=== PATIENT | female | born 1990 | race Caucasian/White ===

== ENCOUNTER 2017-12-02 12:17 | Emergency (ER) | payer MEDICAID ==
[~2017-12-02] VITALS: Ht 177.8 cm; Wt 52.3 kg
[~2017-12-02 12:17] MED LIST: DIPH25CA83 PO; NEOM10DR45 EACH EAR; PRED10TA PO; QUET300T3 PO
[2017-12-02] MEDS ORDERED: DOXY100C43 PO (14:09)
[2017-12-02] MEDS ORDERED: PERM60CR19 TP (14:09)
[2017-12-02 14:17] VITALS: BP 121/77
== END 2017-12-02 14:23 | disposition home or self-care (01) ==
LOC: ER 12:17
DX: B86 Scabies (principal); J32.9 Chronic sinusitis, unspecified; F15.10 Other stimulant abuse, uncomplicated; F11.10 Opioid abuse, uncomplicated; Z86.718 Personal history of other venous thrombosis and embolism; Z79.899 Other long term (current) drug therapy
CPT/HCPCS: 99283

== ENCOUNTER 2018-05-12 10:20 | Emergency (ER) | payer MEDICAID ==
[~2018-05-12] VITALS: Ht 180.3 cm; Wt 68.0 kg
[2018-05-12 10:44] VITALS: BP 120/75
[2018-05-12] MEDS ORDERED: CefTRIAXone 2gm/D5W 50ml 50 ML IV ONE (11:30)
[2018-05-12] MEDS ORDERED: normal saline 1000ML IV soln IV ONE (11:30)
[2018-05-12] MEDS ORDERED: vancomycin/NS 1 GM ADD-VANTAGE 250 ML IV ONE (11:30)
[2018-05-12] MEDS ORDERED: CefTRIAXone 1000mg IM Kit (w/lidocaine diluent) IM ONE (11:45)
[2018-05-12] MEDS ORDERED: SULF1TAB49 PO (11:47)
[2018-05-12] MEDS ORDERED: CEPH500C5 PO (11:47)
[2018-05-12 12:10] LABS: BASOPHILS # (AUTO) 0.1 X10'3 (0-0.2); BASOPHILS % (AUTO) 0.9 % (0-1); EOSINOPHILS # (AUTO) 0.2 X10'3 (0-0.9); EOSINOPHILS % (AUTO) 1.6 % (0-6); HEMATOCRIT 40.3 % (35.0-45.0); HEMOGLOBIN 13.8 g/dl (12.0-16.0); LYMPHOCYTES # (AUTO) 1.8 X10'3 (1.1-4.8); LYMPHOCYTES % (AUTO) 19.1 % (21-51); MEAN CORPUSCULAR HGB CONC 34.2 % (33.0-36.5); MEAN CORPUSCULAR VOLUME 93.8 FL (78-98); MEAN PLATELET VOLUME 7.5 FL (7.4-10.4); MONOCYTES # (AUTO) 0.8 X10'3 (0-0.9); MONOCYTES % (AUTO) 8.2 % (2-12); NEUTROPHILS # (AUTO) 6.7 X10'3 (1.8-7.7); NEUTROPHILS % (AUTO) 70.2 % (42-75); PLATELET COUNT 285 X10'3 (140-440); RED CELL DISTRIBUTION WIDTH 13.3 % (11.5-14.5); WHITE BLOOD COUNT 9.6 X10'3 (4.5-11.0)
[2018-05-12 12:22] LABS: INR 0.9 INR; PARTIAL THROMBOPLASTIN TIME 27 SECONDS (22-32); PROTHROMBIN TIME 9.3 SECONDS (9.0-12.0)
[2018-05-12 12:33] LABS: ALANINE AMINOTRANSFERASE 52 U/L (12-78); ALBUMIN 4.4 G/DL (3.4-5.0); ALBUMIN/GLOBULIN RATIO 1.1 (1.1-1.5); ALKALINE PHOSPHATASE 88 IU/L (46-116); ANION GAP 6 (8-16); ASPARTATE AMINO TRANSFERASE 33 U/L (10-37); BILIRUBIN,TOTAL 0.4 MG/DL (0.1-1.0); BLOOD UREA NITROGEN 12 MG/DL (7-18); BUN/CREATININE RATIO 14.3 (6.6-38.0); CALCIUM 9.5 MG/DL (8.5-10.1); CHLORIDE 101 MMOL/L (99-107); CREATININE 0.84 MG/DL (0.40-0.90); GLUCOSE 116 MG/DL (70-104); MAGNESIUM 2.3 MG/DL (1.5-2.4); POTASSIUM 4.1 MMOL/L (3.5-5.1); SODIUM 137 MMOL/L (135-145); TOTAL CARBON DIOXIDE 29.6 MMOL/L (24-32); TOTAL PROTEIN 8.5 G/DL (6.4-8.2); eGFR 81 ML/MIN
== END 2018-05-12 12:10 | disposition left against medical advice (07) ==
LOC: ER 10:20
DX: M65.9 Synovitis and tenosynovitis, unspecified (principal); F31.9 Bipolar disorder, unspecified; F15.90 Other stimulant use, unspecified, uncomplicated; F11.90 Opioid use, unspecified, uncomplicated; Z79.2 Long term (current) use of antibiotics; Z86.718 Personal history of other venous thrombosis and embolism
CPT/HCPCS: 36415; 80053; 83605; 83735; 84145; 85025; 85610; 85730; 87040; 96372; 99284; J0696

== ENCOUNTER 2018-06-06 07:45 | Emergency (ER) | payer MEDICAID ==
[~2018-06-06] VITALS: Ht 180.3 cm; Wt 65.0 kg
[~2018-06-06 07:45] MED LIST changes: +CEPH250T PO; +CEPH500C5 PO; +IBUP-1986 PO
[2018-06-06] MEDS ORDERED: ondansetron/PF 4mg/2ml inj IV ONE (07:50)
[2018-06-06] MEDS ORDERED: normal saline 1000ML IV soln IVB ONE (07:50)
[2018-06-06 08:28] LABS: BASOPHILS % (AUTO) 0.4 % (0-1); EOSINOPHILS # (AUTO) 0.1 X10'3 (0-0.9); HEMATOCRIT 38.5 % (35.0-45.0); HEMOGLOBIN 13.1 g/dl (12.0-16.0); LYMPHOCYTES # (AUTO) 1.6 X10'3 (1.1-4.8); LYMPHOCYTES % (AUTO) 30.2 % (21-51); MEAN CORPUSCULAR HEMOGLOBIN 31.7 PG (27.0-31.0); MEAN CORPUSCULAR HGB CONC 34.2 % (33.0-36.5); MEAN CORPUSCULAR VOLUME 92.9 FL (78-98); MEAN PLATELET VOLUME 7.6 FL (7.4-10.4); MONOCYTES # (AUTO) 0.4 X10'3 (0-0.9); NEUTROPHILS # (AUTO) 3.2 X10'3 (1.8-7.7); NEUTROPHILS % (AUTO) 60.4 % (42-75); PLATELET COUNT 264 X10'3 (140-440); RED BLOOD COUNT 4.14 X10'6 (4.20-5.60); WHITE BLOOD COUNT 5.3 X10'3 (4.5-11.0)
[2018-06-06 08:41] LABS: ALANINE AMINOTRANSFERASE 74 U/L (12-78); ALBUMIN 4.1 G/DL (3.4-5.0); ALKALINE PHOSPHATASE 89 IU/L (46-116); ANION GAP 12 (8-16); ASPARTATE AMINO TRANSFERASE 74 U/L (10-37); BILIRUBIN,TOTAL 0.3 MG/DL (0.1-1.0); BLOOD UREA NITROGEN 14 MG/DL (7-18); CALCIUM 8.7 MG/DL (8.5-10.1); CHLORIDE 102 MMOL/L (99-107); CREATININE 1.08 MG/DL (0.40-0.90); ETHANOL < 0.010 GM/DL (0.0-0.010); GLUCOSE 143 MG/DL (70-104); POTASSIUM 3.8 MMOL/L (3.5-5.1); SODIUM 138 MMOL/L (135-145); TOTAL CARBON DIOXIDE 24.1 MMOL/L (24-32); TOTAL PROTEIN 8.2 G/DL (6.4-8.2); eGFR 61 ML/MIN
[2018-06-06 08:48] LABS: CLARITY,URINE SLIGHTLY CLOUDY (Clear); COLOR,URINE YELLOW (Yellow); GLUCOSE, URINE 100 mg/dl (Neg); KETONES,URINE NEGATIVE (Neg); LEUKOCYTE ESTERASE ,URINE NEGATIVE (Neg); NITRITES, URINE NEGATIVE (Neg); OCCULT BLOOD,URINE NEGATIVE (Neg); PROTEIN,URINE NEGATIVE (Neg); UROBILINOGEN,URINE 0.2 E.U/dL (0.2-1.0)
[2018-06-06 08:49] LABS: UA COLLECTION TYPE STRAIGHT CATH
[2018-06-06 08:55] LABS: URINE AMPHETAMINE SCREEN POSITIVE (Neg); URINE BARBITUATE SCREEN NEGATIVE (Neg); URINE BENZODIAZEPINES SCREEN POSITIVE (Neg); URINE CANNABINOID SCREEN NEGATIVE (Neg); URINE COCAINE SCREEN NEGATIVE (Neg); URINE METHADONE SCREEN NEGATIVE (Neg); URINE OPIATE SCREEN POSITIVE (Neg); URINE PHENCYCLIDINE SCREEN NEGATIVE (Neg)
[2018-06-06 08:58] LABS: BACTERIA,URINE NONE SEEN /HPF (Neg); SQUAMOUS EPITHELIAL CELL,UR FEW /LPF (FEW); WBC,URINE 0-4 /HPF (0-4)
[2018-06-06 08:59] LABS: RBC,URINE 0-2 /HPF (0-2); TRANSITIONAL EPI CELLS,URINE FEW /HPF
[2018-06-06 09:00] LABS: URINE HCG NEGATIVE (NEG)
[2018-06-06] MEDS ORDERED: normal saline 1000ml 1,000 ML IV ONE (09:25)
[2018-06-06] MEDS ORDERED: diphenhydrAMINE 50 mg/ml inj IV ONE (09:30)
[2018-06-06] MEDS ORDERED: ketorolac trometh. 30mg/ml inj. IV ONE (09:55)
[2018-06-06] MEDS ORDERED: acetaminophen 325mg tablet PO ONE (09:55)
[2018-06-06] MEDS ORDERED: LORazepam 2 mg/ml vial IV ONE ×2 (10:35→11:30)
[2018-06-06] MEDS ORDERED: emollient combination-Eucerin 250 ML LOTION TP ONE (10:45)
[2018-06-06] MEDS ORDERED: dexamethasone 4mg/ml inj IV ONE (10:45)
[2018-06-06 12:09] VITALS: BP 102/72
[2018-06-06] MEDS ORDERED: HYDR28CR67 TP (12:50)
== END 2018-06-06 12:55 | disposition home or self-care (01) ==
LOC: ER 07:45
DX: F15.10 Other stimulant abuse, uncomplicated (principal); F19.10 Other psychoactive substance abuse, uncomplicated; R45.1 Restlessness and agitation; R00.0 Tachycardia, unspecified; F41.9 Anxiety disorder, unspecified; F32.9 Major depressive disorder, single episode, unspecified; F11.90 Opioid use, unspecified, uncomplicated; Z86.718 Personal history of other venous thrombosis and embolism; Z88.8 Allergy status to other drugs, medicaments and biological substances; Z79.899 Other long term (current) drug therapy
CPT/HCPCS: 36415; 71045; 80053; 80305; 80320; 81001; 81025; 85025; 93005; 96374; 96375; 96376; 99285; J1100; J1200; J1885; J2060; J2405; J7030

== ENCOUNTER 2018-06-24 12:27 | Emergency (ER) | payer MEDICAID ==
[~2018-06-24] VITALS: Ht 180.3 cm; Wt 69.0 kg
[~2018-06-24 12:27] MED LIST changes: -CEPH250T PO; +HYDR28CR67 TP
[2018-06-24] MEDS ORDERED: morphine 4 MG/ML inj SYRINge IV ONE (13:55)
[2018-06-24] MEDS ORDERED: ondansetron/PF 4mg/2ml inj IV ONE (13:55)
[2018-06-24] MEDS ORDERED: LORazepam 2 mg/ml vial IV ONE ×2 (14:00→17:10)
[2018-06-24 14:31] LABS: BASOPHILS % (AUTO) 0 % (0-1); EOSINOPHILS # (AUTO) 0.1 X10'3 (0-0.9); EOSINOPHILS % (AUTO) 1.2 % (0-6); HEMATOCRIT 37.4 % (35.0-45.0); HEMOGLOBIN 12.8 g/dl (12.0-16.0); LYMPHOCYTES % (AUTO) 7.8 % (21-51); MEAN CORPUSCULAR HEMOGLOBIN 31.3 PG (27.0-31.0); MEAN CORPUSCULAR HGB CONC 34.1 % (33.0-36.5); MEAN CORPUSCULAR VOLUME 91.7 FL (78-98); MEAN PLATELET VOLUME 7.2 FL (7.4-10.4); MONOCYTES % (AUTO) 8.5 % (2-12); NEUTROPHILS # (AUTO) 10.1 X10'3 (1.8-7.7); NEUTROPHILS % (AUTO) 82.5 % (42-75); PLATELET COUNT 302 X10'3 (140-440); RED BLOOD COUNT 4.08 X10'6 (4.20-5.60); WHITE BLOOD COUNT 12.3 X10'3 (4.5-11.0)
[2018-06-24] MEDS ORDERED: normal saline 1000ML IV soln IVB ONE (14:45)
[2018-06-24 14:47] LABS: TOTAL CELLS COUNTED 100
[2018-06-24 14:48] LABS: PLATELET ESTIMATE NORMAL
[2018-06-24] MEDS ORDERED: diphenhydrAMINE 50 mg/ml inj IV ONE (15:00)
[2018-06-24] MEDS ORDERED: haloperidol decanoate***LONG-ACTING*** 100mg/ml **IM only** inj. IM ONE (15:00)
[2018-06-24 15:08] LABS: ALANINE AMINOTRANSFERASE 61 U/L (12-78); ALBUMIN 4.1 G/DL (3.4-5.0); ALBUMIN/GLOBULIN RATIO 1.2 (1.1-1.5); ALKALINE PHOSPHATASE 82 IU/L (46-116); ANION GAP 12 (8-16); ASPARTATE AMINO TRANSFERASE 34 U/L (10-37); BILIRUBIN,TOTAL 0.7 MG/DL (0.1-1.0); BLOOD UREA NITROGEN 13 MG/DL (7-18); BUN/CREATININE RATIO 16.9 (6.6-38.0); CALCIUM 8.7 MG/DL (8.5-10.1); CHLORIDE 99 MMOL/L (99-107); CREATININE 0.77 MG/DL (0.40-0.90); GLUCOSE 132 MG/DL (70-104); POTASSIUM 3.9 MMOL/L (3.5-5.1); SODIUM 132 MMOL/L (135-145); TOTAL CARBON DIOXIDE 21.1 MMOL/L (24-32); TOTAL PROTEIN 7.6 G/DL (6.4-8.2); eGFR 90 ML/MIN
[2018-06-24] MEDS ORDERED: iohexol 350MG/ML 100ml bottle IV ONE (16:43)
[2018-06-24 17:00] LABS: HCG SERUM QL NEGATIVE
[2018-06-24 17:19] LABS: PARTIAL THROMBOPLASTIN TIME 30 SECONDS (22-32)
[2018-06-24] MEDS ORDERED: haloperidol lactate 5mg/ml inj IM ONE (18:00)
[2018-06-24 18:36] LABS: CLARITY,URINE CLOUDY (Clear); COLOR,URINE YELLOW (Yellow); GLUCOSE, URINE NEGATIVE (Neg); KETONES,URINE 15 mg/dl (Neg); LEUKOCYTE ESTERASE ,URINE SMALL (Neg); NITRITES, URINE POSITIVE (Neg); OCCULT BLOOD,URINE TRACE-INTACT (Neg); PROTEIN,URINE NEGATIVE (Neg); UROBILINOGEN,URINE 0.2 E.U/dL (0.2-1.0)
[2018-06-24 18:37] LABS: URINE AMPHETAMINE SCREEN POSITIVE (Neg); URINE BARBITUATE SCREEN NEGATIVE (Neg); URINE BENZODIAZEPINES SCREEN POSITIVE (Neg); URINE CANNABINOID SCREEN POSITIVE (Neg); URINE COCAINE SCREEN NEGATIVE (Neg); URINE METHADONE SCREEN NEGATIVE (Neg); URINE OPIATE SCREEN POSITIVE (Neg); URINE PHENCYCLIDINE SCREEN NEGATIVE (Neg)
[2018-06-24 18:39] LABS: UA COLLECTION TYPE STRAIGHT CATH
[2018-06-24 18:53] LABS: BACTERIA,URINE 4+ /HPF (Neg); SQUAMOUS EPITHELIAL CELL,UR FEW /LPF (FEW)
[2018-06-24 20:04] VITALS: BP 114/71
== END 2018-06-24 20:07 | disposition home or self-care (01) ==
LOC: ER 12:27
DX: R07.89 Other chest pain (principal); R06.02 Shortness of breath; F15.10 Other stimulant abuse, uncomplicated; F11.10 Opioid abuse, uncomplicated; Z86.718 Personal history of other venous thrombosis and embolism; Z88.8 Allergy status to other drugs, medicaments and biological substances; Z79.899 Other long term (current) drug therapy
CPT/HCPCS: 36415; 71045; 71275; 80053; 80305; 81001; 84484; 84703; 85025; 85610; 85730; 87077; 87088; 87186; 96372; 96374; 96375; 96376; 99285; J1200; J1630; J2060; J2270; J2405; J7030; Q9967

== ENCOUNTER 2018-12-18 16:03 | Emergency (ER) | payer MEDICAID ==
[~2018-12-18] VITALS: Ht 180.3 cm; Wt 65.0 kg
[2018-12-18 16:48] LABS: CLARITY,URINE SLIGHTLY CLOUDY (Clear); COLOR,URINE YELLOW (Yellow); GLUCOSE, URINE NEGATIVE (Neg); KETONES,URINE TRACE mg/dl (Neg); LEUKOCYTE ESTERASE ,URINE NEGATIVE (Neg); NITRITES, URINE NEGATIVE (Neg); OCCULT BLOOD,URINE TRACE-INTACT (Neg); PROTEIN,URINE TRACE mg/dl (Neg)
[2018-12-18 16:50] LABS: URINE HCG NEGATIVE (NEG)
[2018-12-18 16:52] LABS: UA COLLECTION TYPE CLN CATCH MIDSTREAM
[2018-12-18 17:04] LABS: BACTERIA,URINE 3+ /HPF (Neg); MUCUS STRANDS MODERATE /LPF (Neg); RBC,URINE 0-2 /HPF (0-2); SQUAMOUS EPITHELIAL CELL,UR MODERATE /LPF (FEW); WBC,URINE 20-30 /HPF (0-4)
[2018-12-18] MEDS ORDERED: CefTRIAXone 250MG IM Kit w/LIDOcaine IM ONE (18:05)
[2018-12-18] MEDS ORDERED: azithromycin 250mg tablet PO ONE (18:05)
--- NOTE | 2018-12-18 18:08 | NUR ---
assisted Mireille BARTH with pelvic examine, pt seth well, sample sent to lab
[2018-12-18] MEDS ORDERED: CEPH-572 PO (18:11)
[2018-12-18 18:43] VITALS: BP 128/77
== END 2018-12-18 18:46 | disposition home or self-care (01) ==
LOC: ER 16:04
DX: N39.0 Urinary tract infection, site not specified (principal); F15.90 Other stimulant use, unspecified, uncomplicated; F11.90 Opioid use, unspecified, uncomplicated; Z88.8 Allergy status to other drugs, medicaments and biological substances; Z86.718 Personal history of other venous thrombosis and embolism; Z79.2 Long term (current) use of antibiotics; Z79.899 Other long term (current) drug therapy
CPT/HCPCS: 36415; 81001; 81025; 87210; 87491; 87591; 96372; 99283; J0696

== ENCOUNTER 2019-01-17 19:24 | Emergency (ER) | payer MEDICAID ==
[~2019-01-17] VITALS: Ht 180.3 cm; Wt 64.8 kg
[~2019-01-17 19:24] MED LIST changes: -QUET300T3 PO; +QUET300T5 PO
[2019-01-17 19:26] VITALS: BP 125/75
[2019-01-17] MEDS ORDERED: hydrOXYzine 25 MG tablet PO ONE (20:00)
[2019-01-17] MEDS ORDERED: methylPREDNISolone sod succ 125mg/2ml vial IV ONE (20:00)
[2019-01-17] MEDS ORDERED: PRED20TA PO (20:02)
== END 2019-01-17 20:18 | disposition home or self-care (01) ==
LOC: ER 19:25
DX: L30.9 Dermatitis, unspecified (principal); F15.90 Other stimulant use, unspecified, uncomplicated; F11.90 Opioid use, unspecified, uncomplicated; Z86.718 Personal history of other venous thrombosis and embolism; Z88.8 Allergy status to other drugs, medicaments and biological substances; Z79.899 Other long term (current) drug therapy
CPT/HCPCS: 96374; 99283; J2930; Q0177

== ENCOUNTER 2019-01-25 12:32 | Emergency (ER) | payer MEDICAID ==
[~2019-01-25] VITALS: Ht 180.3 cm; Wt 62.0 kg
[~2019-01-25 12:32] MED LIST changes: +PRED20TA PO
[2019-01-25 12:40] VITALS: BP 138/83
[2019-01-25] MEDS ORDERED: sulfamethoxazole/trimethoprim DS (800/160mg) tablet PO ONE (12:50)
[2019-01-25] MEDS ORDERED: CefTRIAXone 1000mg IM Kit (w/lidocaine diluent) IM ONE (12:50)
[2019-01-25] MEDS ORDERED: CEPH-572 PO (12:51)
[2019-01-25] MEDS ORDERED: SULF1TAB49 PO (12:51)
[2019-01-25] MEDS ORDERED: ibuprofen 200mg tablet PO ONE (12:55)
== END 2019-01-25 13:32 | disposition home or self-care (01) ==
LOC: ER 12:33
DX: H00.031 Abscess of right upper eyelid (principal); F15.90 Other stimulant use, unspecified, uncomplicated; F11.90 Opioid use, unspecified, uncomplicated; Z88.8 Allergy status to other drugs, medicaments and biological substances; Z79.899 Other long term (current) drug therapy; Z79.2 Long term (current) use of antibiotics; Z87.440 Personal history of urinary (tract) infections; Z86.718 Personal history of other venous thrombosis and embolism
CPT/HCPCS: 96372; 99283; J0696

== ENCOUNTER 2019-06-26 01:04 | Emergency (ER) | payer MEDICAID ==
[~2019-06-26] VITALS: Ht 180.3 cm; Wt 55.0 kg
[~2019-06-26 01:04] MED LIST changes: -CEPH500C5 PO; -PRED20TA PO
[2019-06-26] MEDS ORDERED: PRED20TA PO (01:57)
[2019-06-26] MEDS ORDERED: HYDR25CA PO (01:57)
[2019-06-26] MEDS ORDERED: hydrOXYzine 10 MG tablet PO PRN (02:05)
[2019-06-26] MEDS ORDERED: predniSONE 20 mg tablet PO ONE (02:05)
[2019-06-26] MEDS ORDERED: MUPI22OI30 TOP (02:27)
[2019-06-26 02:30] VITALS: BP 112/68
== END 2019-06-26 02:32 | disposition home or self-care (01) ==
LOC: ER 01:05
DX: R21 Rash and other nonspecific skin eruption (principal); F41.9 Anxiety disorder, unspecified; F31.9 Bipolar disorder, unspecified; F17.200 Nicotine dependence, unspecified, uncomplicated; F10.99 Alcohol use, unspecified with unspecified alcohol-induced disorder; F15.90 Other stimulant use, unspecified, uncomplicated; F11.90 Opioid use, unspecified, uncomplicated; Z86.19 Personal history of other infectious and parasitic diseases; Z86.718 Personal history of other venous thrombosis and embolism; Z88.8 Allergy status to other drugs, medicaments and biological substances; Z79.899 Other long term (current) drug therapy; Y90.9 Presence of alcohol in blood, level not specified
CPT/HCPCS: 99283; J7512

== ENCOUNTER 2019-07-12 12:29 | Emergency (ER) | payer MEDICAID ==
[~2019-07-12] VITALS: Ht 180.3 cm; Wt 60.5 kg
[~2019-07-12 12:29] MED LIST changes: +HYDR25CA PO; +PRED20TA PO
[2019-07-12] MEDS ORDERED: HYDR-3686 PO (13:19)
[2019-07-12] MEDS ORDERED: MUPI22OI30 TOP (13:19)
[2019-07-12] MEDS ORDERED: DOXY100C2 PO (13:19)
[2019-07-12 13:32] VITALS: BP 130/88
== END 2019-07-12 13:36 | disposition home or self-care (01) ==
LOC: ER 12:30
DX: L03.90 Cellulitis, unspecified (principal); F15.10 Other stimulant abuse, uncomplicated; F41.9 Anxiety disorder, unspecified; F31.9 Bipolar disorder, unspecified; F11.90 Opioid use, unspecified, uncomplicated; Z86.718 Personal history of other venous thrombosis and embolism; Z88.6 Allergy status to analgesic agent; Z88.8 Allergy status to other drugs, medicaments and biological substances
CPT/HCPCS: 99283

== ENCOUNTER 2019-07-19 21:48 | Emergency (ER) | payer MEDICAID ==
[~2019-07-19] VITALS: Ht 180.3 cm; Wt 59.1 kg
[~2019-07-19 21:48] MED LIST changes: +DOXY100C2 PO; +HYDR-3686 PO
[2019-07-19] MEDS ORDERED: PRED20TA PO (22:36)
[2019-07-19 22:43] VITALS: BP 106/55
--- NOTE | 2019-07-19 22:48 | NUR ---
Patient states rash is on legs and buttocks. Instructed patient to change into a gown so that the MD would be able to evaluate her. Patient refused stating that "they didn't have to see it last time." Explained that the MD would need to see the area since symptoms had not resolved after previously prescribed abx. Patient finally took of jeans and put on gown. However she then changed back into a her jeans prior to being see by MD.
== END 2019-07-19 22:45 | disposition home or self-care (01) ==
LOC: ER 21:49
DX: L25.9 Unspecified contact dermatitis, unspecified cause (principal); F15.90 Other stimulant use, unspecified, uncomplicated; F11.90 Opioid use, unspecified, uncomplicated; Z86.718 Personal history of other venous thrombosis and embolism; Z86.14 Personal history of Methicillin resistant Staphylococcus aureus infection; Z79.899 Other long term (current) drug therapy; Z88.5 Allergy status to narcotic agent
CPT/HCPCS: 99283

== ENCOUNTER 2019-11-14 11:15 | Emergency (ER) | payer MEDICAID ==
[~2019-11-14] VITALS: Ht 180.3 cm; Wt 56.8 kg
[~2019-11-14 11:15] MED LIST changes: -DOXY100C2 PO; -HYDR-3686 PO; -PRED20TA PO
[2019-11-14 11:37] VITALS: BP 135/67
[2019-11-14] MEDS ORDERED: TRIA15CR61 TOP (12:02)
[2019-11-14] MEDS ORDERED: MUPI22OI30 TOP (12:02)
[2019-11-14] MEDS ORDERED: PRED10TA23 PO (12:02)
== END 2019-11-14 12:19 | disposition home or self-care (01) ==
LOC: ER 11:17
DX: L25.9 Unspecified contact dermatitis, unspecified cause (principal); J02.9 Acute pharyngitis, unspecified; Z76.0 Encounter for issue of repeat prescription; F41.9 Anxiety disorder, unspecified; F31.9 Bipolar disorder, unspecified; F15.90 Other stimulant use, unspecified, uncomplicated; F11.90 Opioid use, unspecified, uncomplicated; F10.99 Alcohol use, unspecified with unspecified alcohol-induced disorder; Z86.718 Personal history of other venous thrombosis and embolism; Z86.14 Personal history of Methicillin resistant Staphylococcus aureus infection; Z86.19 Personal history of other infectious and parasitic diseases; Z88.8 Allergy status to other drugs, medicaments and biological substances; Z79.899 Other long term (current) drug therapy; Y90.9 Presence of alcohol in blood, level not specified
CPT/HCPCS: 99283

== ENCOUNTER 2020-05-06 18:29 | Emergency (ER) | payer MEDICAID ==
[~2020-05-06] VITALS: Ht 177.8 cm; Wt 53.6 kg
[~2020-05-06 18:29] MED LIST changes: +ONDA4TAB6 PO
[2020-05-06 18:31] VITALS: BP 112/83
[2020-05-06] MEDS ORDERED: triamcinolone acetonide 40mg/ml inj IM ONE (18:55)
[2020-05-06] MEDS ORDERED: KEN0.1O TP (18:59)
[2020-05-06] MEDS ORDERED: PRED20TA PO (18:59)
== END 2020-05-06 19:19 | disposition home or self-care (01) ==
LOC: ER 18:29
DX: L23.9 Allergic contact dermatitis, unspecified cause (principal); F41.9 Anxiety disorder, unspecified; F15.90 Other stimulant use, unspecified, uncomplicated; F31.9 Bipolar disorder, unspecified; F11.90 Opioid use, unspecified, uncomplicated; Z86.19 Personal history of other infectious and parasitic diseases; Z87.440 Personal history of urinary (tract) infections; Z86.718 Personal history of other venous thrombosis and embolism; Z86.14 Personal history of Methicillin resistant Staphylococcus aureus infection; Z72.89 Other problems related to lifestyle; Z88.8 Allergy status to other drugs, medicaments and biological substances; Z79.2 Long term (current) use of antibiotics; Z79.899 Other long term (current) drug therapy
CPT/HCPCS: 96372; 99283; J3301

== ENCOUNTER 2020-07-24 04:10 | Emergency (ER) | payer MEDICAID ==
[~2020-07-24] VITALS: Ht 180.3 cm; Wt 56.8 kg
[2020-07-24 04:18] VITALS: BP 120/75
[2020-07-24] MEDS ORDERED: BETA15CR4 TOP (04:27)
[2020-07-24] MEDS ORDERED: PRED20TA PO (04:27)
[2020-07-24] MEDS ORDERED: HYDR-3686 PO (04:27)
[2020-07-24] MEDS ORDERED: dexamethasone 4mg tablet PO ONE (04:30)
[2020-07-24] MEDS ORDERED: acetaminophen 325mg tablet PO ONE (04:35)
[2020-07-24] MEDS ORDERED: ketorolac trometh. 30mg/ml inj. IV ONE (04:35)
[2020-07-24] MEDS ORDERED: ketorolac tromethamine 15mg/ml inj. IM ONE (04:45)
--- NOTE | 2020-07-24 04:59 | NUR ---
PT WAS SCREAMING ON THE PHONE IN HER ROOM ABOUT US NOT TAKING CARE OF HER PAIN. WE EXPLAINED TO HER WE WHERE WORKING ON OBTAING THE DOCTORS ORDERS. PT'S CALLED AND I EXPLAINED SHE HAD BEEN HERE LESS THAN AN HOUR WE WERE WORKING ON HER ORDERS AND WOULD BE GETTING MEDICATIONS. HE TOLD ME I HAD AN ATTITUDE AND HE WAS COMING WITH HIS MALPRACTICE MUSIC PROFESSOR. I ASKED HIM IF HE WANTED MY FULL NAME AND HE HUNG UP
== END 2020-07-24 05:28 | disposition home or self-care (01) ==
LOC: ER 04:11
DX: L23.7 Allergic contact dermatitis due to plants, except food (principal); F41.9 Anxiety disorder, unspecified; F31.9 Bipolar disorder, unspecified; F15.90 Other stimulant use, unspecified, uncomplicated; Z86.19 Personal history of other infectious and parasitic diseases; Z86.718 Personal history of other venous thrombosis and embolism; Z86.14 Personal history of Methicillin resistant Staphylococcus aureus infection; Z88.8 Allergy status to other drugs, medicaments and biological substances; Z79.2 Long term (current) use of antibiotics; Z79.899 Other long term (current) drug therapy
CPT/HCPCS: 96372; 99283; J1885